=== PATIENT | female | born 1935 | race Caucasian/White ===

== ENCOUNTER 2016-07-12 15:03 | Inpatient (IN) | payer MEDICARE, OTHER ==
[~2016-07-12] VITALS: Ht 154.9 cm; Wt 59.8 kg
[~2016-07-12 15:03] MED LIST: ALBU8HFA IH; AMOX1TAB16 PO; ASPI81 PO; BUDE10.2 IH; CALC1TAB15 PO; CARV12 PO; ESCI10TA PO; FOLI1 PO; FURO40 PO; GUAI600T PO; LEVO50 PO; MULT1CAP32 PO; NYST5L PO; OMEP20 PO; PRED5 PO; SERT25TA PO; SLOWK8 PO; SPIR25 PO; THEO100T25 PO; TIOT185 IH
[2016-07-12 15:30] LABS: BASOPHILS # (AUTO) 0.03 K/uL (0.00-0.20); BASOPHILS % (AUTO) 0.5 % (0.0-2.0); EOSINOPHILS # (AUTO) 0.01 K/uL (0.00-0.70); EOSINOPHILS % (AUTO) 0.19 % (1.0-6.0); HEMATOCRIT 41.1 % (36-46); HEMOGLOBIN 13.3 g/dL (12.0-16.0); LYMPHOCYTES # (AUTO) 0.8 K/uL (1.0-4.8); LYMPHOCYTES % (AUTO) 12.5 % (22.0-44.0); MEAN CORPUSCULAR HEMOGLOBIN 28.5 pg (26.0-34.0); MEAN CORPUSCULAR HGB CONC 32.3 G/dL (31.0-37.0); MEAN CORPUSCULAR VOLUME 88 fL (80-100); MONOCYTES # (AUTO) 0.3 K/uL (0.1-1.0); NEUTROPHILS # (AUTO) 5.4 K/uL (1.8-7.7); NEUTROPHILS % (AUTO) 82.8 % (40.0-70.0); PLATELET COUNT (AUTO) 59 K/uL (150-450); RED BLOOD CELL COUNT(AUTO) 4.67 MIL/uL (4.00-5.20); RED CELL DISTRIBUTION WIDTH 25.4 % (11.5-14.5); WHITE BLOOD COUNT (AUTO) 6.5 K/uL (4.5-11.0)
[2016-07-12 15:35] LABS: ANION GAP 5 mmol/L (8-16); CALCIUM, TOTAL 8.8 mg/dL (8.8-10.5); CARBON DIOXIDE 33 mmol/L (22-29); CHLORIDE 104 mmol/L (98-107); CREATININE 0.98 mg/dL (0.60-1.30); GLOMERULAR FILTR. RATE CALC 54 mL/min (>60); POTASSIUM 4.6 mmol/L (3.5-5.1); SODIUM SERUM 142 mmol/L (136-145); UREA NITROGEN, BLOOD 22 mg/dL (7-18)
[2016-07-12 15:41] LABS: ALANINE AMINOTRANSFERASE 77 U/L (12-78); ALBUMIN 2.8 g/dL (3.4-5.0); ASPARTATE AMINOTRANSFERASE 58 U/L (15-37); BILIRUBIN,TOTAL 2.2 mg/dL (0.1-1.0); CREATINE KINASE, TOTAL 36 U/L (26-192); TOTAL PROTEIN, SERUM 6.5 g/dL (6.4-8.2)
[2016-07-12] MEDS ORDERED: DIGOXIN 250 MCG/ML 2 ML AMP ONE (15:46)
[2016-07-12 15:51] LABS: APPEARANCE,URINE CLOUDY (CLEAR); GLUCOSE, URINE (UA) NEGATIVE (NEGATIVE); KETONES,URINE NEGATIVE (NEGATIVE); LEUKOCYTE ESTERASE ,URINE LARGE (NEGATIVE); OCCULT BLOOD,URINE TRACE (NEGATIVE); PROTEIN,URINE NEGATIVE (NEGATIVE)
[2016-07-12 15:53] LABS: ADD UA MICROSCOPIC YES
[2016-07-12] MEDS ORDERED: DIGOXIN 250 MCG/ML 2 ML AMP IVP ONE (16:00)
[2016-07-12 16:20] LABS: SQUAMOUS EPITHELIAL CELL,UR Moderate /LPF (None Seen)
[2016-07-12 16:21] LABS: RBC,URINE 0-2 /HPF (0-2)
[2016-07-12] MEDS ORDERED: DILTIAZEM HCL 125 MG in DEXTROSE 5%-WATER 100 ML IV STA (16:44)
[2016-07-12] MEDS ORDERED: ASPIRIN 325 MG TABLET PO ONE (16:45)
[2016-07-12 16:49] LABS: INR 1.3 (0.9-1.1); PROTHROMBIN TIME 13.6 SEC (9.4-11.6)
[2016-07-12] MEDS ORDERED: DILTIAZEM HCL 125 MG in DEXTROSE 5%-WATER 100 ML IV SCH (17:34)
[2016-07-12] MEDS ORDERED: ACETAMINOPHEN 325 MG TABLET PO PRN (18:00)
[2016-07-12] MEDS ORDERED: ONDANSETRON HCL 4 MG/2 ML VIAL IVP PRN ×2 (18:00→20:30)
[2016-07-12] MEDS ORDERED: 0.9% SODIUM CHLORIDE 10 ML SYRINGE IVP PRN (18:00)
[2016-07-12 20:25] VITALS: BP 98/48
[2016-07-12] MEDS ORDERED: HYDROCODONE/ACETAMINOPHEN 5-325 MG TABLET PO PRN (20:30)
[2016-07-12] MEDS ORDERED: MAGNESIUM HYDROXIDE SUSPENSION 30 ML UDCUP PO PRN (20:30)
[2016-07-12] MEDS ORDERED: BISACODYL 10 MG RECTAL RECTAL SUPPOSITORY PR PRN (20:30)
[2016-07-12] MEDS ORDERED: ZOLPIDEM TARTRATE 5 MG TABLET PO PRN (20:30)
[2016-07-12] MEDS ORDERED: ALBUTEROL SULFATE 2.5 MG/0.5 ML NEB SOLUTION NEB PRN (20:30)
[2016-07-12] MEDS ORDERED: MORPHINE SULFATE 2 MG/ML SYRINGE IVP PRN (20:30)
[2016-07-12] MEDS ORDERED: IPRATROPIUM BROMIDE 0.5 MG/2.5 ML NEB SOLUTION NEB PRN (20:30)
[2016-07-12] MEDS: BUDESONIDE/FORMOTEROL FUMARATE 160-4.5 MCG/PUFF 6.9 GM INHALER IH SCH (21:52)
[2016-07-12] MEDS: DOCUSATE SODIUM 100 MG CAPSULE PO SCH (21:52)
[2016-07-13] VITALS (7 sets, daily range): BP systolic 97–117; BP diastolic 5–71
[2016-07-13] MEDS: HEPARIN SODIUM,PORCINE 5,000 UNITS/ML VIAL SQ SCH ×2 (00:42→09:20)
[2016-07-13 05:27] LABS: CHOL/HDL RATIO 4.7 (3.9-5.7)
[2016-07-13] MEDS ORDERED: DILTIAZEM HCL 125 MG in DEXTROSE 5%-WATER 100 ML IV PRN (05:38)
[2016-07-13] MEDS: LEVOTHYROXINE SODIUM 50 MCG TABLET PO SCH (06:11)
[2016-07-13] MEDS ORDERED: ASPIRIN 81 MG CHEWABLE TABLET PO SCH (09:00)
[2016-07-13] MEDS: FOLIC ACID 1 MG TABLET PO SCH (09:20)
[2016-07-13] MEDS: SERTRALINE HCL 50 MG TABLET PO SCH (09:21)
[2016-07-13] MEDS: DOCUSATE SODIUM 100 MG CAPSULE PO SCH ×2 (09:21→20:21)
[2016-07-13] MEDS: MULTIVITAMINS, THERAPEUTIC TABLET PO SCH (09:21)
[2016-07-13] MEDS: PANTOPRAZOLE SODIUM 40 MG DR TABLET PO SCH (09:22)
[2016-07-13] MEDS: POTASSIUM CHLORIDE 8 MEQ ER TABLET PO SCH (09:22)
[2016-07-13] MEDS: TIOTROPIUM BROMIDE 18 MCG/INH HANDIHALER [5] IH SCH (09:22)
[2016-07-13] MEDS: CALCIUM OYSTER SHELL 500 MG TABLET PO SCH (09:22)
[2016-07-13] MEDS: BUDESONIDE/FORMOTEROL FUMARATE 160-4.5 MCG/PUFF 6.9 GM INHALER IH SCH ×2 (09:22→20:21)
[2016-07-13] MEDS: SPIRONOLACTONE 25 MG TABLET PO SCH (09:23)
[2016-07-13] MEDS ORDERED: AMIODARONE HCL 150 MG in DEXTROSE 5%-WATER 97 ML IV ONE (13:20)
[2016-07-13] MEDS ORDERED: AMIODARONE HCL 360 MG in DEXTROSE 5%-WATER 242.8 ML IV ONE (13:30)
[2016-07-13] MEDS: ESCITALOPRAM OXALATE 10 MG TABLET PO SCH (13:46)
[2016-07-13] MEDS: APIXABAN 2.5 MG TABLET PO SCH ×2 (15:43→20:22)
[2016-07-13] MEDS ORDERED: AMIODARONE HCL 540 MG in DEXTROSE 5%-WATER 239.2 ML IV ONE (19:30)
[2016-07-13] MEDS: ACETAMINOPHEN 325 MG TABLET PO PRN (20:28)
[2016-07-13] MEDS ORDERED: AMIODARONE HCL 200 MG TABLET PO SCH (21:00)
[2016-07-14 03:24] VITALS: BP 130/77
[2016-07-14] MEDS: LEVOTHYROXINE SODIUM 50 MCG TABLET PO SCH (05:32)
[2016-07-14] MEDS: PANTOPRAZOLE SODIUM 40 MG DR TABLET PO SCH (07:59)
[2016-07-14] MEDS: MULTIVITAMINS, THERAPEUTIC TABLET PO SCH (07:59)
[2016-07-14] MEDS: DOCUSATE SODIUM 100 MG CAPSULE PO SCH ×2 (08:00→20:00)
[2016-07-14] MEDS: FOLIC ACID 1 MG TABLET PO SCH (08:00)
[2016-07-14] MEDS: SPIRONOLACTONE 25 MG TABLET PO SCH (08:00)
[2016-07-14] MEDS: APIXABAN 2.5 MG TABLET PO SCH ×2 (08:00→20:00)
[2016-07-14] MEDS: TIOTROPIUM BROMIDE 18 MCG/INH HANDIHALER [5] IH SCH (08:01)
[2016-07-14] MEDS: BUDESONIDE/FORMOTEROL FUMARATE 160-4.5 MCG/PUFF 6.9 GM INHALER IH SCH ×2 (08:02→20:00)
[2016-07-14] MEDS: SERTRALINE HCL 50 MG TABLET PO SCH (08:02)
[2016-07-14] MEDS: CALCIUM OYSTER SHELL 500 MG TABLET PO SCH (08:02)
[2016-07-14 08:27] VITALS: BP 124/94
[2016-07-14] MEDS: METOPROLOL TARTRATE 25 MG TABLET PO SCH ×2 (09:48→20:00)
[2016-07-14] MEDS: AMIODARONE HCL 200 MG TABLET PO SCH ×3 (09:48→23:38)
[2016-07-14 12:38] VITALS: BP 102/63
[2016-07-14] MEDS: ESCITALOPRAM OXALATE 10 MG TABLET PO SCH (12:52)
[2016-07-14] MEDS ORDERED: AMIODARONE HCL 750 MG in DEXTROSE 5%-WATER 485 ML IV SCH (13:30)
[2016-07-14 16:25] VITALS: BP 132/79
[2016-07-14] MEDS: ACETAMINOPHEN 325 MG TABLET PO PRN (16:28)
[2016-07-14 19:31] VITALS: BP 118/64
[2016-07-14 23:53] VITALS: BP 145/86
[2016-07-15 04:14] VITALS: BP 146/78
[2016-07-15] MEDS: ACETAMINOPHEN 325 MG TABLET PO PRN (04:42)
[2016-07-15] MEDS: LEVOTHYROXINE SODIUM 50 MCG TABLET PO SCH (05:44)
[2016-07-15 06:30] LABS: BASOPHILS % (AUTO) 0.3 % (0.0-2.0); EOSINOPHILS % (AUTO) 1.7 % (1.0-6.0); HEMATOCRIT 40.6 % (36-46); LYMPHOCYTES # (AUTO) 1.2 K/uL (1.0-4.8); MEAN CORPUSCULAR HEMOGLOBIN 28.5 pg (26.0-34.0); MEAN CORPUSCULAR HGB CONC 32.1 G/dL (31.0-37.0); MEAN CORPUSCULAR VOLUME 89 fL (80-100); MONOCYTES # (AUTO) 0.5 K/uL (0.1-1.0); MONOCYTES % (AUTO) 7.1 % (2.0-9.0); NEUTROPHILS # (AUTO) 4.9 K/uL (1.8-7.7); NEUTROPHILS % (AUTO) 72.9 % (40.0-70.0); PLATELET COUNT (AUTO) 74 K/uL (150-450); RED BLOOD CELL COUNT(AUTO) 4.58 MIL/uL (4.00-5.20); RED CELL DISTRIBUTION WIDTH 24.8 % (11.5-14.5); WHITE BLOOD COUNT (AUTO) 6.8 K/uL (4.5-11.0)
[2016-07-15 06:48] LABS: ALANINE AMINOTRANSFERASE 56 U/L (12-78); ALBUMIN 2.4 g/dL (3.4-5.0); ANION GAP 3 mmol/L (8-16); ASPARTATE AMINOTRANSFERASE 52 U/L (15-37); BILIRUBIN,TOTAL 5.4 mg/dL (0.1-1.0); CALCIUM, TOTAL 8.2 mg/dL (8.8-10.5); CARBON DIOXIDE 32 mmol/L (22-29); CHLORIDE 101 mmol/L (98-107); CREATININE 0.62 mg/dL (0.60-1.30); GLOMERULAR FILTR. RATE CALC > 60 mL/min (>60); POTASSIUM 3.9 mmol/L (3.5-5.1); SODIUM SERUM 136 mmol/L (136-145); TOTAL PROTEIN, SERUM 5.7 g/dL (6.4-8.2); UREA NITROGEN, BLOOD 9 mg/dL (7-18)
[2016-07-15 07:33] VITALS: BP 130/58
[2016-07-15] MEDS: AMIODARONE HCL 200 MG TABLET PO SCH ×2 (08:55→16:23)
[2016-07-15] MEDS: SPIRONOLACTONE 25 MG TABLET PO SCH (08:56)
[2016-07-15] MEDS: METOPROLOL TARTRATE 25 MG TABLET PO SCH ×2 (08:56→20:54)
[2016-07-15] MEDS: DOCUSATE SODIUM 100 MG CAPSULE PO SCH ×2 (08:56→20:54)
[2016-07-15] MEDS: MULTIVITAMINS, THERAPEUTIC TABLET PO SCH (08:56)
[2016-07-15] MEDS: PANTOPRAZOLE SODIUM 40 MG DR TABLET PO SCH (08:56)
[2016-07-15] MEDS: FOLIC ACID 1 MG TABLET PO SCH (08:56)
[2016-07-15] MEDS: CALCIUM OYSTER SHELL 500 MG TABLET PO SCH (08:56)
[2016-07-15] MEDS: TIOTROPIUM BROMIDE 18 MCG/INH HANDIHALER [5] IH SCH (08:57)
[2016-07-15] MEDS: APIXABAN 2.5 MG TABLET PO SCH ×2 (08:57→20:54)
[2016-07-15] MEDS: BUDESONIDE/FORMOTEROL FUMARATE 160-4.5 MCG/PUFF 6.9 GM INHALER IH SCH ×2 (08:57→20:54)
[2016-07-15] MEDS: SERTRALINE HCL 50 MG TABLET PO SCH (08:58)
[2016-07-15] MEDS ORDERED: MAGNESIUM SULFATE 3 GM in DEXTROSE 5%-WATER 100 ML IV ONE (10:15)
[2016-07-15] MEDS: ESCITALOPRAM OXALATE 10 MG TABLET PO SCH (11:37)
[2016-07-15 11:58] VITALS: BP 120/65
[2016-07-15 16:15] VITALS: BP 134/73
[2016-07-15 20:02] VITALS: BP 120/77
[2016-07-15 23:20] VITALS: BP 107/81
[2016-07-16] MEDS: AMIODARONE HCL 200 MG TABLET PO SCH ×3 (00:40→16:19)
[2016-07-16 05:05] VITALS: BP 117/69
[2016-07-16] MEDS: LEVOTHYROXINE SODIUM 50 MCG TABLET PO SCH (06:14)
[2016-07-16 07:52] VITALS: BP 131/86
[2016-07-16] MEDS: CALCIUM OYSTER SHELL 500 MG TABLET PO SCH (08:03)
[2016-07-16] MEDS: BUDESONIDE/FORMOTEROL FUMARATE 160-4.5 MCG/PUFF 6.9 GM INHALER IH SCH (08:03)
[2016-07-16] MEDS: FOLIC ACID 1 MG TABLET PO SCH (08:04)
[2016-07-16] MEDS: SPIRONOLACTONE 25 MG TABLET PO SCH (08:04)
[2016-07-16] MEDS: MULTIVITAMINS, THERAPEUTIC TABLET PO SCH (08:04)
[2016-07-16] MEDS: POTASSIUM CHLORIDE 8 MEQ ER TABLET PO SCH (08:04)
[2016-07-16] MEDS: SERTRALINE HCL 50 MG TABLET PO SCH (08:04)
[2016-07-16] MEDS: METOPROLOL TARTRATE 25 MG TABLET PO SCH (08:04)
[2016-07-16] MEDS: DOCUSATE SODIUM 100 MG CAPSULE PO SCH (08:04)
[2016-07-16] MEDS: APIXABAN 2.5 MG TABLET PO SCH (08:04)
[2016-07-16] MEDS: PANTOPRAZOLE SODIUM 40 MG DR TABLET PO SCH (08:05)
[2016-07-16] MEDS ORDERED: MAGNESIUM SULFATE 2 GM in DEXTROSE 5%-WATER 50 ML IV ONE (09:45)
[2016-07-16] MEDS ORDERED: SODIUM CHLORIDE 0.9% 100 ML ONE (11:58)
[2016-07-16 12:02] VITALS: BP 122/74
[2016-07-16] MEDS: ESCITALOPRAM OXALATE 10 MG TABLET PO SCH (12:13)
[2016-07-16] MEDS: ACETAMINOPHEN 325 MG TABLET PO PRN (12:13)
[2016-07-16] MEDS ORDERED: APIX2.5T PO (15:44)
[2016-07-16] MEDS ORDERED: AMIO200T44 PO (15:44)
[2016-07-16 15:46] VITALS: BP 116/72
[2016-07-16] MEDS: TIOTROPIUM BROMIDE 18 MCG/INH HANDIHALER [5] IH SCH (16:19)
[2016-09-13] MEDS ORDERED: CIPR-278 PO (14:35)
[2016-09-13] MEDS ORDERED: FERR-72 PO (14:35)
== END 2016-07-16 17:00 | disposition home or self-care (01) | DRG 309 ==
LOC: EMS 15:05 → 5S 17:10 → ICU 17:10 → 5S 07-13 15:26
PROVIDERS: ADMIT Hospitalist; ATTEND Hospitalist
DX: I48.91 Unspecified atrial fibrillation (principal); I24.8 Other forms of acute ischemic heart disease; E44.1 Mild protein-calorie malnutrition; J44.9 Chronic obstructive pulmonary disease, unspecified; J45.909 Unspecified asthma, uncomplicated; K21.9 Gastro-esophageal reflux disease without esophagitis; E03.9 Hypothyroidism, unspecified; F32.9 Major depressive disorder, single episode, unspecified; I50.9 Heart failure, unspecified; I11.0 Hypertensive heart disease with heart failure; B18.2 Chronic viral hepatitis C; K74.60 Unspecified cirrhosis of liver; E78.5 Hyperlipidemia, unspecified; D69.6 Thrombocytopenia, unspecified; F17.200 Nicotine dependence, unspecified, uncomplicated; Z79.899 Other long term (current) drug therapy; Z79.82 Long term (current) use of aspirin; Z90.49 Acquired absence of other specified parts of digestive tract; Z86.73 Personal history of transient ischemic attack (TIA), and cerebral infarction without residual deficits; Z83.3 Family history of diabetes mellitus; Z82.5 Family history of asthma and other chronic lower respiratory diseases; Z82.49 Family history of ischemic heart disease and other diseases of the circulatory system
CPT/HCPCS: 83735; 87081; 87086; 93005; 93306; 96365; 96366; 96368; 96375; 99291; J0282; J1160; J1644; J3475; J3490; J7050; J7060

== ENCOUNTER 2016-07-17 08:39 | Emergency (ER) | payer MEDICARE, OTHER ==
[~2016-07-17] VITALS: Ht 147.3 cm; Wt 64.5 kg
[~2016-07-17 08:39] MED LIST changes: +AMIO200T44 PO; -AMOX1TAB16 PO; +APIX2.5T PO; -PRED5 PO
[2016-07-17 09:45] LABS: BASOPHILS % (AUTO) 0.4 % (0.0-2.0); EOSINOPHILS % (AUTO) 2.7 % (1.0-6.0); HEMATOCRIT 40.6 % (36-46); HEMOGLOBIN 13.2 g/dL (12.0-16.0); LYMPHOCYTES # (AUTO) 0.7 K/uL (1.0-4.8); LYMPHOCYTES % (AUTO) 20.7 % (22.0-44.0); MEAN CORPUSCULAR HEMOGLOBIN 28.6 pg (26.0-34.0); MEAN CORPUSCULAR HGB CONC 32.6 G/dL (31.0-37.0); MEAN CORPUSCULAR VOLUME 88 fL (80-100); MONOCYTES # (AUTO) 0.3 K/uL (0.1-1.0); MONOCYTES % (AUTO) 8.9 % (2.0-9.0); NEUTROPHILS # (AUTO) 2.1 K/uL (1.8-7.7); NEUTROPHILS % (AUTO) 67.3 % (40.0-70.0); PLATELET COUNT (AUTO) 77 K/uL (150-450); RED BLOOD CELL COUNT(AUTO) 4.62 MIL/uL (4.00-5.20); RED CELL DISTRIBUTION WIDTH 25.8 % (11.5-14.5); WHITE BLOOD COUNT (AUTO) 3.2 K/uL (4.5-11.0)
[2016-07-17 09:57] LABS: INR 1.3 (0.9-1.1); PROTHROMBIN TIME 13.8 SEC (9.4-11.6)
[2016-07-17 09:58] LABS: ANION GAP 3 mmol/L (8-16); CALCIUM, TOTAL 7.6 mg/dL (8.8-10.5); CARBON DIOXIDE 31 mmol/L (22-29); CHLORIDE 102 mmol/L (98-107); CREATININE 0.83 mg/dL (0.60-1.30); GLOMERULAR FILTR. RATE CALC > 60 mL/min (>60); POTASSIUM 4.7 mmol/L (3.5-5.1); SODIUM SERUM 136 mmol/L (136-145); UREA NITROGEN, BLOOD 10 mg/dL (7-18)
[2016-07-17 10:02] LABS: RBC MORPHOLOGY COMMENT ABNORMAL RBC MORPH
[2016-07-17 10:05] LABS: ALANINE AMINOTRANSFERASE 51 U/L (12-78); ALBUMIN 2.3 g/dL (3.4-5.0); ASPARTATE AMINOTRANSFERASE 73 U/L (15-37); B-TYPE NATRIURETIC PEPTIDE 676 pg/mL (0-100); BILIRUBIN,TOTAL 5.7 mg/dL (0.1-1.0); CREATINE KINASE, TOTAL 36 U/L (26-192); TOTAL PROTEIN, SERUM 5.5 g/dL (6.4-8.2)
[2016-07-17] MEDS ORDERED: FAMOTIDINE 40 MG in SODIUM CHLORIDE 0.9% 100 ML IV ONE (13:30)
[2016-07-17 14:28] VITALS: BP 110/66
[2016-09-13] MEDS ORDERED: CIPR-278 PO (14:35)
[2016-09-13] MEDS ORDERED: FERR-72 PO (14:35)
== END 2016-07-17 14:40 | disposition home or self-care (01) ==
LOC: EMS 08:43
DX: K21.9 Gastro-esophageal reflux disease without esophagitis (principal); I95.9 Hypotension, unspecified; I11.0 Hypertensive heart disease with heart failure; I50.9 Heart failure, unspecified; J45.909 Unspecified asthma, uncomplicated; J44.9 Chronic obstructive pulmonary disease, unspecified
CPT/HCPCS: 71010; 80053; 82550; 83880; 84484; 85025; 85610; 85730; 93005; 96365; 99285; J3490; J7050

== ENCOUNTER 2016-08-14 05:37 | Inpatient (IN) | payer MEDICARE, OTHER ==
[~2016-08-14] VITALS: Ht 149.9 cm; Wt 55.8 kg
[2016-08-14] MEDS ORDERED: ALBUTEROL SULFATE 5 MG/ML 20 ML NEB SOLN [BULK] NEB ONE (06:00)
[2016-08-14] MEDS ORDERED: IPRATROPIUM BROMIDE 0.5 MG/2.5 ML NEB SOLUTION NEB ONE ×2 (06:00→13:15)
[2016-08-14] MEDS ORDERED: SODIUM CHLORIDE 0.9% 250 ML IV ONE (06:15)
[2016-08-14 06:44] LABS: ANION GAP 7 mmol/L (8-16); CALCIUM, TOTAL 8.4 mg/dL (8.8-10.5); CARBON DIOXIDE 32 mmol/L (22-29); CHLORIDE 105 mmol/L (98-107); CREATININE 0.84 mg/dL (0.60-1.30); GLOMERULAR FILTR. RATE CALC > 60 mL/min (>60); POTASSIUM 4.1 mmol/L (3.5-5.1); SODIUM SERUM 144 mmol/L (136-145); UREA NITROGEN, BLOOD 10 mg/dL (7-18)
[2016-08-14 06:45] LABS: INR 1.2 (0.9-1.1); PROTHROMBIN TIME 12.8 SEC (9.4-11.6)
[2016-08-14 06:47] LABS: ORIG DRAW (USER) PTCARESTAF
[2016-08-14 06:50] LABS: ALANINE AMINOTRANSFERASE 29 U/L (12-78); ALBUMIN 2.5 g/dL (3.4-5.0); ASPARTATE AMINOTRANSFERASE 65 U/L (15-37); BILIRUBIN,TOTAL 1.4 mg/dL (0.1-1.0); CREATINE KINASE, TOTAL 51 U/L (26-192); TOTAL PROTEIN, SERUM 6.5 g/dL (6.4-8.2)
[2016-08-14 07:04] LABS: B-TYPE NATRIURETIC PEPTIDE 300 pg/mL (0-100)
[2016-08-14 07:17] LABS: BASOPHILS % (AUTO) 0.3 % (0.0-2.0); EOSINOPHILS % (AUTO) 1.2 % (1.0-6.0); HEMOGLOBIN 11.1 g/dL (12.0-16.0); LYMPHOCYTES # (AUTO) 1.3 K/uL (1.0-4.8); LYMPHOCYTES % (AUTO) 44.8 % (22.0-44.0); MEAN CORPUSCULAR HEMOGLOBIN 30.1 pg (26.0-34.0); MEAN CORPUSCULAR HGB CONC 32.7 G/dL (31.0-37.0); MEAN CORPUSCULAR VOLUME 92 fL (80-100); MONOCYTES # (AUTO) 0.3 K/uL (0.1-1.0); MONOCYTES % (AUTO) 11.8 % (2.0-9.0); NEUTROPHILS # (AUTO) 1.2 K/uL (1.8-7.7); NEUTROPHILS % (AUTO) 41.9 % (40.0-70.0); RED BLOOD CELL COUNT(AUTO) 3.69 MIL/uL (4.00-5.20); WHITE BLOOD COUNT (AUTO) 2.9 K/uL (4.5-11.0)
[2016-08-14 07:19] LABS: PLATELET COUNT (AUTO) 57 K/uL (150-450)
[2016-08-14] MEDS ORDERED: MethylPREDNISolone SOD SUCC 125 MG/2 ML VIAL IVP ONE (07:45)
[2016-08-14] MEDS ORDERED: AZITHROMYCIN 500 MG/NS 250 ML IV ONE (07:45)
[2016-08-14] MEDS ORDERED: CefTRIAXone 1 GM/DEXTROSE 50 ML IV ONE (07:45)
[2016-08-14 10:56] LABS: RBC MORPHOLOGY COMMENT ABNORMAL RBC MORPH
[2016-08-14] MEDS ORDERED: ALBUTEROL SULFATE 2.5 MG/0.5 ML NEB SOLUTION NEB ONE (13:15)
[2016-08-14] MEDS ORDERED: 0.9% SODIUM CHLORIDE 5 ML NEB SOLUTION NEB ONE (13:20)
[2016-08-14 15:55] VITALS: BP 98/57
[2016-08-14 22:19] VITALS: BP 146/83
[2016-08-14] MEDS ORDERED: IPRATROPIUM BROMIDE 0.5 MG/2.5 ML NEB SOLUTION NEB PRN (22:45)
[2016-08-14] MEDS ORDERED: ALBUTEROL SULFATE 2.5 MG/0.5 ML NEB SOLUTION NEB PRN (22:45)
[2016-08-14] MEDS ORDERED: ONDANSETRON HCL 4 MG/2 ML VIAL IVP PRN (22:45)
[2016-08-14] MEDS ORDERED: BISACODYL 10 MG RECTAL RECTAL SUPPOSITORY PR PRN (22:45)
[2016-08-14] MEDS ORDERED: HYDROCODONE/ACETAMINOPHEN 5-325 MG TABLET PO PRN (22:45)
[2016-08-14] MEDS ORDERED: MAGNESIUM HYDROXIDE SUSPENSION 30 ML UDCUP PO PRN (22:45)
[2016-08-14] MEDS ORDERED: ZOLPIDEM TARTRATE 5 MG TABLET PO PRN (22:45)
[2016-08-14] MEDS ORDERED: MORPHINE SULFATE 2 MG/ML SYRINGE IVP PRN (23:00)
[2016-08-14] MEDS: ALBUTEROL SULFATE 2.5 MG/0.5 ML NEB SOLUTION NEB SCH (23:00)
[2016-08-14] MEDS: IPRATROPIUM BROMIDE 0.5 MG/2.5 ML NEB SOLUTION NEB SCH (23:00)
[2016-08-14] MEDS: MethylPREDNISolone SOD SUCC 125 MG/2 ML VIAL IVP SCH (23:43)
[2016-08-14] MEDS: HEPARIN SODIUM,PORCINE 5,000 UNITS/ML VIAL SQ SCH (23:43)
[2016-08-15] VITALS (8 sets, daily range): BP systolic 100–142; BP diastolic 42–76
[2016-08-15] MEDS: MethylPREDNISolone SOD SUCC 125 MG/2 ML VIAL IVP SCH ×4 (05:36→23:58)
[2016-08-15] MEDS: LEVOTHYROXINE SODIUM 50 MCG TABLET PO SCH (05:36)
[2016-08-15] MEDS: ALBUTEROL SULFATE 2.5 MG/0.5 ML NEB SOLUTION NEB SCH ×5 (07:44→22:55)
[2016-08-15] MEDS: IPRATROPIUM BROMIDE 0.5 MG/2.5 ML NEB SOLUTION NEB SCH ×5 (07:44→22:55)
[2016-08-15] MEDS ORDERED: PANTOPRAZOLE SODIUM 40 MG/VIAL IVP SCH (09:00)
[2016-08-15] MEDS: TIOTROPIUM BROMIDE 18 MCG/INH HANDIHALER [5] IH SCH (10:23)
[2016-08-15] MEDS: BUDESONIDE/FORMOTEROL FUMARATE 160-4.5 MCG/PUFF 6.9 GM INHALER IH SCH ×2 (10:23→20:18)
[2016-08-15] MEDS: HEPARIN SODIUM,PORCINE 5,000 UNITS/ML VIAL SQ SCH ×3 (10:24→23:53)
[2016-08-15] MEDS: SERTRALINE HCL 50 MG TABLET PO SCH (10:24)
[2016-08-15] MEDS: SPIRONOLACTONE 25 MG TABLET PO SCH (10:24)
[2016-08-15] MEDS: OMEPRAZOLE 20 MG CAPSULE PO SCH (10:24)
[2016-08-15] MEDS: POTASSIUM CHLORIDE 8 MEQ ER TABLET PO SCH (10:24)
[2016-08-15] MEDS: FOLIC ACID 1 MG TABLET PO SCH (10:25)
[2016-08-15] MEDS: CALCIUM OYSTER SHELL 500 MG TABLET PO SCH (10:25)
[2016-08-15] MEDS: AMIODARONE HCL 200 MG TABLET PO SCH ×2 (10:25→20:20)
[2016-08-15] MEDS: ASPIRIN 81 MG CHEWABLE TABLET PO SCH (10:25)
[2016-08-15] MEDS: APIXABAN 2.5 MG TABLET PO SCH ×2 (10:26→20:19)
[2016-08-15] MEDS: DOCUSATE SODIUM 100 MG CAPSULE PO SCH ×2 (10:26→20:19)
[2016-08-15] MEDS: MULTIVITAMINS, THERAPEUTIC TABLET PO SCH (10:26)
[2016-08-15] MEDS: ACETAMINOPHEN 325 MG TABLET PO PRN (10:33)
[2016-08-15] MEDS: ESCITALOPRAM OXALATE 10 MG TABLET PO SCH (12:42)
[2016-08-15] MEDS: FUROSEMIDE 40 MG TABLET PO SCH ×2 (12:42→20:19)
[2016-08-15] MEDS: CARVEDILOL 12.5 MG TABLET PO SCH ×2 (14:16→20:20)
[2016-08-16 04:51] VITALS: BP 131/56
[2016-08-16] MEDS: MethylPREDNISolone SOD SUCC 125 MG/2 ML VIAL IVP SCH ×4 (05:19→23:27)
[2016-08-16] MEDS: LEVOTHYROXINE SODIUM 50 MCG TABLET PO SCH (05:20)
[2016-08-16] MEDS: IPRATROPIUM BROMIDE 0.5 MG/2.5 ML NEB SOLUTION NEB SCH ×5 (07:18→23:00)
[2016-08-16] MEDS: ALBUTEROL SULFATE 2.5 MG/0.5 ML NEB SOLUTION NEB SCH ×5 (07:18→23:00)
[2016-08-16 07:31] VITALS: BP 139/61
[2016-08-16] MEDS: HEPARIN SODIUM,PORCINE 5,000 UNITS/ML VIAL SQ SCH ×3 (09:46→23:27)
[2016-08-16] MEDS: BUDESONIDE/FORMOTEROL FUMARATE 160-4.5 MCG/PUFF 6.9 GM INHALER IH SCH ×2 (09:46→20:13)
[2016-08-16] MEDS: SPIRONOLACTONE 25 MG TABLET PO SCH (09:46)
[2016-08-16] MEDS: TIOTROPIUM BROMIDE 18 MCG/INH HANDIHALER [5] IH SCH (09:46)
[2016-08-16] MEDS: CALCIUM OYSTER SHELL 500 MG TABLET PO SCH (09:47)
[2016-08-16] MEDS: DOCUSATE SODIUM 100 MG CAPSULE PO SCH ×2 (09:47→20:04)
[2016-08-16] MEDS: FOLIC ACID 1 MG TABLET PO SCH (09:47)
[2016-08-16] MEDS: FUROSEMIDE 40 MG TABLET PO SCH ×2 (09:47→20:04)
[2016-08-16] MEDS: CARVEDILOL 12.5 MG TABLET PO SCH ×2 (09:47→20:04)
[2016-08-16] MEDS: ASPIRIN 81 MG CHEWABLE TABLET PO SCH (09:47)
[2016-08-16] MEDS: APIXABAN 2.5 MG TABLET PO SCH ×2 (09:47→20:04)
[2016-08-16] MEDS: MULTIVITAMINS, THERAPEUTIC TABLET PO SCH (09:48)
[2016-08-16] MEDS: SERTRALINE HCL 50 MG TABLET PO SCH (09:48)
[2016-08-16] MEDS: OMEPRAZOLE 20 MG CAPSULE PO SCH (09:48)
[2016-08-16] MEDS: AMIODARONE HCL 200 MG TABLET PO SCH ×2 (09:48→20:04)
[2016-08-16 11:40] VITALS: BP 124/53
[2016-08-16] MEDS: ESCITALOPRAM OXALATE 10 MG TABLET PO SCH (12:51)
[2016-08-16 15:11] LABS: BASOPHILS % (AUTO) 0.1 % (0.0-2.0); EOSINOPHILS % (AUTO) 0 % (1.0-6.0); HEMATOCRIT 36.2 % (36-46); HEMOGLOBIN 11.8 g/dL (12.0-16.0); LYMPHOCYTES # (AUTO) 0.5 K/uL (1.0-4.8); LYMPHOCYTES % (AUTO) 9.4 % (22.0-44.0); MEAN CORPUSCULAR HEMOGLOBIN 30.1 pg (26.0-34.0); MEAN CORPUSCULAR HGB CONC 32.4 G/dL (31.0-37.0); MEAN CORPUSCULAR VOLUME 93 fL (80-100); MONOCYTES # (AUTO) 0.2 K/uL (0.1-1.0); NEUTROPHILS # (AUTO) 4.4 K/uL (1.8-7.7); RED CELL DISTRIBUTION WIDTH 21.1 % (11.5-14.5)
[2016-08-16 15:14] LABS: NEUTROPHILS % (AUTO) 86.5 % (40.0-70.0)
[2016-08-16 15:27] LABS: POTASSIUM 4.7 mmol/L (3.5-5.1)
[2016-08-16 15:32] LABS: ALBUMIN 2.5 g/dL (3.4-5.0)
[2016-08-16 15:58] LABS: CALCIUM, TOTAL 8.5 mg/dL (8.8-10.5); CREATININE 1.23 mg/dL (0.60-1.30)
[2016-08-16 16:01] VITALS: BP 103/46
[2016-08-16 16:04] LABS: BILIRUBIN,TOTAL 1.3 mg/dL (0.1-1.0); TOTAL PROTEIN, SERUM 6.4 g/dL (6.4-8.2)
[2016-08-16 16:32] LABS: PLATELET COUNT (AUTO) 61 K/uL (150-450)
[2016-08-16 19:40] VITALS: BP 137/69
[2016-08-16 23:57] VITALS: BP 116/50
[2016-08-17 05:00] VITALS: BP 116/61
[2016-08-17] MEDS: MethylPREDNISolone SOD SUCC 125 MG/2 ML VIAL IVP SCH ×2 (05:52→12:28)
[2016-08-17] MEDS: LEVOTHYROXINE SODIUM 50 MCG TABLET PO SCH (05:52)
[2016-08-17 06:44] LABS: BASOPHILS # (AUTO) 0.01 K/uL (0.00-0.20); BASOPHILS % (AUTO) 0.3 % (0.0-2.0); EOSINOPHILS % (AUTO) 0.02 % (1.0-6.0); HEMATOCRIT 33.1 % (36-46); HEMOGLOBIN 11.2 g/dL (12.0-16.0); LYMPHOCYTES # (AUTO) 0.4 K/uL (1.0-4.8); LYMPHOCYTES % (AUTO) 11.1 % (22.0-44.0); MEAN CORPUSCULAR HEMOGLOBIN 31.1 pg (26.0-34.0); MEAN CORPUSCULAR HGB CONC 33.9 G/dL (31.0-37.0); MEAN CORPUSCULAR VOLUME 92 fL (80-100); MONOCYTES # (AUTO) 0.1 K/uL (0.1-1.0); MONOCYTES % (AUTO) 1.9 % (2.0-9.0); NEUTROPHILS # (AUTO) 2.7 K/uL (1.8-7.7); PLATELET COUNT (AUTO) 54 K/uL (150-450); RED BLOOD CELL COUNT(AUTO) 3.61 MIL/uL (4.00-5.20); RED CELL DISTRIBUTION WIDTH 21.5 % (11.5-14.5); WHITE BLOOD COUNT (AUTO) 3.2 K/uL (4.5-11.0)
[2016-08-17 07:02] LABS: NEUTROPHILS % (AUTO) 86.7 % (40.0-70.0); RBC MORPHOLOGY COMMENT ABNORMAL RBC MORPH
[2016-08-17 07:03] LABS: ALBUMIN 2.5 g/dL (3.4-5.0); BILIRUBIN,TOTAL 1.3 mg/dL (0.1-1.0); CALCIUM, TOTAL 8.2 mg/dL (8.8-10.5); CREATININE 1.13 mg/dL (0.60-1.30); POTASSIUM 3.9 mmol/L (3.5-5.1); TOTAL PROTEIN, SERUM 6.2 g/dL (6.4-8.2)
[2016-08-17 07:41] VITALS: BP 143/64
[2016-08-17] MEDS: HEPARIN SODIUM,PORCINE 5,000 UNITS/ML VIAL SQ SCH ×2 (08:44→15:15)
[2016-08-17] MEDS: TIOTROPIUM BROMIDE 18 MCG/INH HANDIHALER [5] IH SCH (08:45)
[2016-08-17] MEDS: OMEPRAZOLE 20 MG CAPSULE PO SCH (08:45)
[2016-08-17] MEDS: POTASSIUM CHLORIDE 8 MEQ ER TABLET PO SCH (08:45)
[2016-08-17] MEDS: DOCUSATE SODIUM 100 MG CAPSULE PO SCH (08:45)
[2016-08-17] MEDS: BUDESONIDE/FORMOTEROL FUMARATE 160-4.5 MCG/PUFF 6.9 GM INHALER IH SCH (08:45)
[2016-08-17] MEDS: APIXABAN 2.5 MG TABLET PO SCH (08:46)
[2016-08-17] MEDS: ASPIRIN 81 MG CHEWABLE TABLET PO SCH (08:46)
[2016-08-17] MEDS: CALCIUM OYSTER SHELL 500 MG TABLET PO SCH (08:46)
[2016-08-17] MEDS: MULTIVITAMINS, THERAPEUTIC TABLET PO SCH (08:46)
[2016-08-17] MEDS: FOLIC ACID 1 MG TABLET PO SCH (08:46)
[2016-08-17] MEDS: CARVEDILOL 12.5 MG TABLET PO SCH (08:46)
[2016-08-17] MEDS: AMIODARONE HCL 200 MG TABLET PO SCH (08:46)
[2016-08-17] MEDS: SPIRONOLACTONE 25 MG TABLET PO SCH (08:46)
[2016-08-17] MEDS: FUROSEMIDE 40 MG TABLET PO SCH (08:46)
[2016-08-17] MEDS: SERTRALINE HCL 50 MG TABLET PO SCH (08:46)
[2016-08-17] MEDS: ACETAMINOPHEN 325 MG TABLET PO PRN (08:53)
[2016-08-17] MEDS: IPRATROPIUM BROMIDE 0.5 MG/2.5 ML NEB SOLUTION NEB SCH ×3 (09:16→15:41)
[2016-08-17] MEDS: ALBUTEROL SULFATE 2.5 MG/0.5 ML NEB SOLUTION NEB SCH ×3 (09:16→15:41)
[2016-08-17 11:27] VITALS: BP 110/51
[2016-08-17] MEDS: ESCITALOPRAM OXALATE 10 MG TABLET PO SCH (12:28)
[2016-08-17 16:11] VITALS: BP 129/68
[2016-08-17] MEDS ORDERED: DSS100 PO (16:16)
[2016-08-17] MEDS ORDERED: IPRNEB IH (16:18)
[2016-08-17] MEDS ORDERED: AUD NEB (16:19)
[2016-09-13] MEDS ORDERED: CIPR-278 PO (14:35)
[2016-09-13] MEDS ORDERED: FERR-72 PO (14:35)
== END 2016-08-17 17:00 | disposition home or self-care (01) | DRG 291 ==
LOC: EMS 05:40 → AHU 15:10 → 5S 22:02
PROVIDERS: ADMIT Hospitalist; ATTEND Hospitalist
DX: I11.0 Hypertensive heart disease with heart failure (principal); J96.20 Acute and chronic respiratory failure, unspecified whether with hypoxia or hypercapnia; J45.901 Unspecified asthma with (acute) exacerbation; E44.0 Moderate protein-calorie malnutrition; I50.33 Acute on chronic diastolic (congestive) heart failure; I48.91 Unspecified atrial fibrillation; J44.9 Chronic obstructive pulmonary disease, unspecified; D64.9 Anemia, unspecified; F32.9 Major depressive disorder, single episode, unspecified; E03.9 Hypothyroidism, unspecified; Z68.24 Body mass index [BMI] 24.0-24.9, adult; F17.210 Nicotine dependence, cigarettes, uncomplicated; K21.9 Gastro-esophageal reflux disease without esophagitis; K74.60 Unspecified cirrhosis of liver; Z90.49 Acquired absence of other specified parts of digestive tract; Z79.01 Long term (current) use of anticoagulants; Z79.82 Long term (current) use of aspirin; Z79.51 Long term (current) use of inhaled steroids; Z79.899 Other long term (current) drug therapy
CPT/HCPCS: 87081; 93005; 94060; 94640; 94644; 96361; 96365; 96366; 96368; 96375; 97163; 97166; 97530; 99285; J0456; J0696; J1644; J2930; J7050

== ENCOUNTER 2016-08-24 11:35 | Emergency (ER) | payer MEDICARE, OTHER ==
[~2016-08-24] VITALS: Ht 144.8 cm; Wt 66.0 kg
[~2016-08-24 11:35] MED LIST changes: +AUD NEB; +DSS100 PO; +IPRNEB IH
[2016-08-24 15:09] LABS: BASOPHILS % (AUTO) 0.1 % (0.0-2.0); EOSINOPHILS % (AUTO) 0.1 % (1.0-6.0); HEMATOCRIT 40.6 % (36-46); HEMOGLOBIN 13.1 g/dL (12.0-16.0); LYMPHOCYTES # (AUTO) 0.6 K/uL (1.0-4.8); LYMPHOCYTES % (AUTO) 7.8 % (22.0-44.0); MEAN CORPUSCULAR HEMOGLOBIN 30.1 pg (26.0-34.0); MEAN CORPUSCULAR HGB CONC 32.1 G/dL (31.0-37.0); MEAN CORPUSCULAR VOLUME 94 fL (80-100); MONOCYTES # (AUTO) 0.5 K/uL (0.1-1.0); MONOCYTES % (AUTO) 6.5 % (2.0-9.0); NEUTROPHILS # (AUTO) 6.4 K/uL (1.8-7.7); PLATELET COUNT (AUTO) 125 K/uL (150-450); RED BLOOD CELL COUNT(AUTO) 4.33 MIL/uL (4.00-5.20); RED CELL DISTRIBUTION WIDTH 19.9 % (11.5-14.5); WHITE BLOOD COUNT (AUTO) 7.5 K/uL (4.5-11.0)
[2016-08-24 15:12] LABS: NEUTROPHILS % (AUTO) 85.5 % (40.0-70.0)
[2016-08-24 15:27] LABS: CALCIUM, TOTAL 8.4 mg/dL (8.8-10.5); CREATININE 1.03 mg/dL (0.60-1.30); POTASSIUM 4.2 mmol/L (3.5-5.1)
[2016-08-24 15:32] LABS: ALBUMIN 2.9 g/dL (3.4-5.0); BILIRUBIN,TOTAL 1.6 mg/dL (0.1-1.0); TOTAL PROTEIN, SERUM 6.9 g/dL (6.4-8.2)
[2016-08-24 15:37] LABS: RBC MORPHOLOGY COMMENT ABNORMAL RBC MORPH
[2016-08-24] MEDS ORDERED: ACETAMINOPHEN 500 MG TABLET PO ONE (17:00)
[2016-08-24 17:20] VITALS: BP 139/53
[2016-09-13] MEDS ORDERED: CIPR-278 PO (14:35)
[2016-09-13] MEDS ORDERED: FERR-72 PO (14:35)
== END 2016-08-24 18:03 | disposition home or self-care (01) ==
LOC: EMS 11:37
DX: S52.502A Unspecified fracture of the lower end of left radius, initial encounter for closed fracture (principal); S80.02XA Contusion of left knee, initial encounter; I11.0 Hypertensive heart disease with heart failure; I50.9 Heart failure, unspecified; J44.9 Chronic obstructive pulmonary disease, unspecified; J45.909 Unspecified asthma, uncomplicated; K21.9 Gastro-esophageal reflux disease without esophagitis; Z79.82 Long term (current) use of aspirin; W19.XXXA Unspecified fall, initial encounter; Y93.89 Activity, other specified; Y92.89 Other specified places as the place of occurrence of the external cause; Y99.8 Other external cause status
CPT/HCPCS: 70450; 71020; 73521; 73552; 99285

== ENCOUNTER 2016-09-01 18:45 | Emergency (ER) | payer MEDICARE, OTHER ==
[~2016-09-01] VITALS: Ht 142.2 cm; Wt 65.9 kg
[2016-09-01] MEDS ORDERED: HYDROCODONE/ACETAMINOPHEN 5-325 MG TABLET PO ONE (20:00)
[2016-09-01 22:18] VITALS: BP 118/79
== END 2016-09-01 22:36 | disposition home or self-care (01) ==
LOC: EMS 18:50
DX: S80.02XA Contusion of left knee, initial encounter (principal); I11.0 Hypertensive heart disease with heart failure; I50.9 Heart failure, unspecified; J45.909 Unspecified asthma, uncomplicated; K21.9 Gastro-esophageal reflux disease without esophagitis; J44.9 Chronic obstructive pulmonary disease, unspecified; Z79.82 Long term (current) use of aspirin; W01.0XXA Fall on same level from slipping, tripping and stumbling without subsequent striking against object, initial encounter; Y93.89 Activity, other specified; Y92.89 Other specified places as the place of occurrence of the external cause; Y99.8 Other external cause status
CPT/HCPCS: 29530; 29540; 93971; 99284

== ENCOUNTER 2016-09-11 16:41 | Emergency (ER) | payer MEDICARE, OTHER ==
[~2016-09-11] VITALS: Ht 152.4 cm; Wt 65.0 kg
[2016-09-11 17:27] LABS: BASOPHILS # (AUTO) 0.01 K/uL (0.00-0.20); BASOPHILS % (AUTO) 0.4 % (0.0-2.0); EOSINOPHILS # (AUTO) 0.03 K/uL (0.00-0.70); EOSINOPHILS % (AUTO) 1.11 % (1.0-6.0); HEMATOCRIT 37.6 % (36-46); HEMOGLOBIN 12.4 g/dL (12.0-16.0); LYMPHOCYTES # (AUTO) 0.6 K/uL (1.0-4.8); MEAN CORPUSCULAR HEMOGLOBIN 32.4 pg (26.0-34.0); MEAN CORPUSCULAR HGB CONC 32.9 G/dL (31.0-37.0); MEAN CORPUSCULAR VOLUME 99 fL (80-100); MONOCYTES # (AUTO) 0.2 K/uL (0.1-1.0); MONOCYTES % (AUTO) 7.5 % (2.0-9.0); NEUTROPHILS # (AUTO) 1.6 K/uL (1.8-7.7); PLATELET COUNT (AUTO) 72 K/uL (150-450); RED BLOOD CELL COUNT(AUTO) 3.81 MIL/uL (4.00-5.20); RED CELL DISTRIBUTION WIDTH 19.3 % (11.5-14.5); WHITE BLOOD COUNT (AUTO) 2.5 K/uL (4.5-11.0)
[2016-09-11 17:29] LABS: ANION GAP 6 mmol/L (8-16); CALCIUM, TOTAL 7.9 mg/dL (8.8-10.5); CARBON DIOXIDE 32 mmol/L (22-29); CHLORIDE 108 mmol/L (98-107); GLOMERULAR FILTR. RATE CALC 31 mL/min (>60); POTASSIUM 3.8 mmol/L (3.5-5.1); SODIUM SERUM 146 mmol/L (136-145); UREA NITROGEN, BLOOD 24 mg/dL (7-18)
[2016-09-11 17:32] LABS: INR 1.5 (0.9-1.1); PROTHROMBIN TIME 15.9 SEC (9.4-11.6)
[2016-09-11 17:35] LABS: ALANINE AMINOTRANSFERASE 48 U/L (12-78); ALBUMIN 2.2 g/dL (3.4-5.0); ASPARTATE AMINOTRANSFERASE 81 U/L (15-37); BILIRUBIN,TOTAL 11.1 mg/dL (0.1-1.0); CREATINE KINASE, TOTAL 50 U/L (26-192); TOTAL PROTEIN, SERUM 5.8 g/dL (6.4-8.2)
[2016-09-11 17:47] LABS: B-TYPE NATRIURETIC PEPTIDE 340 pg/mL (0-100)
[2016-09-11 17:53] LABS: APPEARANCE,URINE CLOUDY (CLEAR); GLUCOSE, URINE (UA) NEGATIVE (NEGATIVE); KETONES,URINE NEGATIVE (NEGATIVE); LEUKOCYTE ESTERASE ,URINE TRACE (NEGATIVE); OCCULT BLOOD,URINE NEGATIVE (NEGATIVE); PROTEIN,URINE NEGATIVE (NEGATIVE)
[2016-09-11 17:54] LABS: RBC MORPHOLOGY COMMENT ABNORMAL RBC MORPH
[2016-09-11 18:00] LABS: ADD UA MICROSCOPIC YES
[2016-09-11 18:16] LABS: RBC,URINE 0-2 /HPF (0-2); SQUAMOUS EPITHELIAL CELL,UR Few /LPF (None Seen)
[2016-09-11 20:23] VITALS: BP 124/71
[2016-09-11] MEDS ORDERED: CIPROFLOXACIN HCL 250 MG TABLET PO ONE (22:00)
[2016-09-13] MEDS ORDERED: CIPR-278 PO (14:35)
[2016-09-13] MEDS ORDERED: FERR-72 PO (14:35)
== END 2016-09-11 22:17 | disposition home or self-care (01) ==
LOC: EMS 16:43
DX: R00.1 Bradycardia, unspecified (principal); N39.0 Urinary tract infection, site not specified; E80.6 Other disorders of bilirubin metabolism; R63.0 Anorexia; I11.0 Hypertensive heart disease with heart failure; I50.9 Heart failure, unspecified; J44.9 Chronic obstructive pulmonary disease, unspecified; K21.9 Gastro-esophageal reflux disease without esophagitis; J45.909 Unspecified asthma, uncomplicated; Z68.28 Body mass index [BMI] 28.0-28.9, adult; Z79.82 Long term (current) use of aspirin
CPT/HCPCS: 74176; 87086; 93005; 99285; 99406

== ENCOUNTER 2016-09-13 15:31 | Inpatient (IN) | payer MEDICARE, OTHER ==
[~2016-09-13] VITALS: Ht 175.3 cm; Wt 60.7 kg
[2016-09-13 17:21] LABS: BASOPHILS % (AUTO) 0.4 % (0.0-2.0); EOSINOPHILS % (AUTO) 1.1 % (1.0-6.0); HEMATOCRIT 38.6 % (36-46); HEMOGLOBIN 12.2 g/dL (12.0-16.0); LYMPHOCYTES # (AUTO) 0.8 K/uL (1.0-4.8); LYMPHOCYTES % (AUTO) 24.9 % (22.0-44.0); MEAN CORPUSCULAR HEMOGLOBIN 31.3 pg (26.0-34.0); MEAN CORPUSCULAR HGB CONC 31.7 G/dL (31.0-37.0); MEAN CORPUSCULAR VOLUME 99 fL (80-100); MONOCYTES # (AUTO) 0.3 K/uL (0.1-1.0); MONOCYTES % (AUTO) 9.4 % (2.0-9.0); NEUTROPHILS # (AUTO) 2.2 K/uL (1.8-7.7); NEUTROPHILS % (AUTO) 64.2 % (40.0-70.0); PLATELET COUNT (AUTO) 83 K/uL (150-450); WHITE BLOOD COUNT (AUTO) 3.4 K/uL (4.5-11.0)
[2016-09-13 17:31] LABS: CALCIUM, TOTAL 8.3 mg/dL (8.8-10.5); CREATININE 1.53 mg/dL (0.60-1.30); POTASSIUM 4.4 mmol/L (3.5-5.1)
[2016-09-13 17:39] LABS: ALBUMIN 2.3 g/dL (3.4-5.0); BILIRUBIN,TOTAL 11.2 mg/dL (0.1-1.0); TOTAL PROTEIN, SERUM 5.9 g/dL (6.4-8.2)
[2016-09-13 17:41] LABS: RBC MORPHOLOGY COMMENT ABNORMAL RBC MORPH
[2016-09-13] MEDS ORDERED: ACETAMINOPHEN 325 MG TABLET PO PRN (21:30)
[2016-09-13] MEDS ORDERED: ZOLPIDEM TARTRATE 5 MG TABLET PO PRN (21:30)
[2016-09-13] MEDS ORDERED: OxyCODONE HCL/ACETAMINOPHEN 5-325 MG TABLET PO PRN (21:30)
[2016-09-14] VITALS (8 sets, daily range): BP systolic 98–158; BP diastolic 42–63
[2016-09-14] MEDS ORDERED: 0.9% SODIUM CHLORIDE 10 ML SYRINGE IVP PRN (01:30)
[2016-09-14] MEDS: HEPARIN SODIUM,PORCINE 5,000 UNITS/ML VIAL SQ SCH ×2 (01:34→08:19)
[2016-09-14 05:58] LABS: BASOPHILS % (AUTO) 0.5 % (0.0-2.0); EOSINOPHILS % (AUTO) 1.2 % (1.0-6.0); HEMATOCRIT 34.2 % (36-46); HEMOGLOBIN 10.9 g/dL (12.0-16.0); LYMPHOCYTES # (AUTO) 0.7 K/uL (1.0-4.8); MEAN CORPUSCULAR HEMOGLOBIN 31.7 pg (26.0-34.0); MEAN CORPUSCULAR VOLUME 99 fL (80-100); MONOCYTES # (AUTO) 0.2 K/uL (0.1-1.0); MONOCYTES % (AUTO) 9.7 % (2.0-9.0); NEUTROPHILS # (AUTO) 1.3 K/uL (1.8-7.7); NEUTROPHILS % (AUTO) 57.6 % (40.0-70.0); PLATELET COUNT (AUTO) 71 K/uL (150-450); RED BLOOD CELL COUNT(AUTO) 3.45 MIL/uL (4.00-5.20); RED CELL DISTRIBUTION WIDTH 18.6 % (11.5-14.5); WHITE BLOOD COUNT (AUTO) 2.2 K/uL (4.5-11.0)
[2016-09-14 06:32] LABS: BILIRUBIN,TOTAL 9.4 mg/dL (0.1-1.0); CALCIUM, TOTAL 7.9 mg/dL (8.8-10.5); CREATININE 1.38 mg/dL (0.60-1.30); POTASSIUM 4.1 mmol/L (3.5-5.1); THYROID STIMULATING HORMONE 0.68 uIU/mL (0.36-3.74); TOTAL PROTEIN, SERUM 5.3 g/dL (6.4-8.2)
[2016-09-14] MEDS: LEVOTHYROXINE SODIUM 50 MCG TABLET PO SCH (06:47)
[2016-09-14] MEDS: PANTOPRAZOLE SODIUM 40 MG DR TABLET PO SCH (08:19)
[2016-09-14] MEDS: FOLIC ACID 1 MG TABLET PO SCH (08:19)
[2016-09-14] MEDS: SERTRALINE HCL 50 MG TABLET PO SCH (08:19)
[2016-09-14] MEDS: ASPIRIN 81 MG CHEWABLE TABLET PO SCH (08:19)
[2016-09-14] MEDS: SPIRONOLACTONE 25 MG TABLET PO SCH (08:19)
[2016-09-14] MEDS ORDERED: FUROSEMIDE 40 MG TABLET PO SCH (09:00)
[2016-09-14] MEDS ORDERED: AMIODARONE HCL 200 MG TABLET PO SCH (09:00)
[2016-09-14 09:03] LABS: RBC MORPHOLOGY COMMENT ABNORMAL RBC MORPH
[2016-09-14] MEDS ORDERED: SODIUM CHLORIDE 0.9% 250 ML IV ONE (09:55)
[2016-09-14 11:47] LABS: INR 1.6 (0.9-1.1); PROTHROMBIN TIME 16.4 SEC (9.4-11.6)
[2016-09-14] MEDS ORDERED: SODIUM CHLORIDE 0.45% 500 ML IV ONE (13:30)
[2016-09-14] MEDS ORDERED: GADOBUTROL 1 MMOL/ML 10 ML VIAL IVP ONE (16:40)
[2016-09-15 04:18] VITALS: BP 101/52
[2016-09-15] MEDS: LEVOTHYROXINE SODIUM 50 MCG TABLET PO SCH (06:48)
[2016-09-15 07:42] VITALS: BP 98/38
[2016-09-15 08:10] LABS: BASOPHILS % (AUTO) 0.3 % (0.0-2.0); EOSINOPHILS % (AUTO) 1.2 % (1.0-6.0); HEMATOCRIT 36.1 % (36-46); HEMOGLOBIN 11.4 g/dL (12.0-16.0); LYMPHOCYTES % (AUTO) 29.7 % (22.0-44.0); MEAN CORPUSCULAR HEMOGLOBIN 31.5 pg (26.0-34.0); MEAN CORPUSCULAR HGB CONC 31.7 G/dL (31.0-37.0); MEAN CORPUSCULAR VOLUME 99 fL (80-100); MONOCYTES # (AUTO) 0.3 K/uL (0.1-1.0); MONOCYTES % (AUTO) 9.3 % (2.0-9.0); NEUTROPHILS % (AUTO) 59.5 % (40.0-70.0); PLATELET COUNT (AUTO) 87 K/uL (150-450); RED BLOOD CELL COUNT(AUTO) 3.63 MIL/uL (4.00-5.20); RED CELL DISTRIBUTION WIDTH 18.8 % (11.5-14.5); WHITE BLOOD COUNT (AUTO) 3.4 K/uL (4.5-11.0)
[2016-09-15] MEDS: FOLIC ACID 1 MG TABLET PO SCH (08:14)
[2016-09-15] MEDS: SERTRALINE HCL 50 MG TABLET PO SCH (08:14)
[2016-09-15] MEDS: PANTOPRAZOLE SODIUM 40 MG DR TABLET PO SCH (08:14)
[2016-09-15 08:44] LABS: BILIRUBIN,TOTAL 9.6 mg/dL (0.1-1.0); CREATININE 1.39 mg/dL (0.60-1.30); POTASSIUM 4.7 mmol/L (3.5-5.1); TOTAL PROTEIN, SERUM 5.7 g/dL (6.4-8.2)
[2016-09-15 09:03] LABS: RBC MORPHOLOGY COMMENT ABNORMAL RBC MORPH
[2016-09-15 09:45] VITALS: BP 105/64
[2016-09-15 09:46] VITALS: BP 130/63
[2016-09-15] MEDS: SPIRONOLACTONE 25 MG TABLET PO SCH (09:52)
[2016-09-15] MEDS: ASPIRIN 81 MG CHEWABLE TABLET PO SCH (09:52)
[2016-09-15 10:26] LABS: HEPATITIS Bs ANTIGEN SCREEN P Negative (Negative); HEPATITIS C AB SCREEN >11.0 s/co ratio (0.0-0.9)
[2016-09-15 11:11] VITALS: BP 131/53
[2016-09-17 19:07] LABS: ANA,IFA (TITER & PATTERN) Negative
[2016-09-18 02:31] LABS: CARCINOEMBRYONIC AG 8.5 ng/mL (0.0-4.7)
[2016-09-18 12:09] LABS: F-ACTIN (SMOOTH MUSCLE) AB IGG 17 Units (0-19); MITOCHONDRIAL M2 AB IGG 3.8 Units (0.0-20.0)
== END 2016-09-15 15:10 | disposition home or self-care (01) | DRG 441 ==
LOC: EMS 15:34 → 5N 22:27 → 5S 22:27
PROVIDERS: ADMIT Hospitalist; ATTEND Hospitalist
DX: R17 Unspecified jaundice (principal); E43 Unspecified severe protein-calorie malnutrition; N17.9 Acute kidney failure, unspecified; I50.22 Chronic systolic (congestive) heart failure; D61.818 Other pancytopenia; I13.0 Hypertensive heart and chronic kidney disease with heart failure and stage 1 through stage 4 chronic kidney disease, or unspecified chronic kidney disease; R18.8 Other ascites; Z68.1 Body mass index [BMI] 19.9 or less, adult; K74.60 Unspecified cirrhosis of liver; J44.9 Chronic obstructive pulmonary disease, unspecified; D69.6 Thrombocytopenia, unspecified; I48.2 Chronic atrial fibrillation; E03.9 Hypothyroidism, unspecified; E11.22 Type 2 diabetes mellitus with diabetic chronic kidney disease; E78.5 Hyperlipidemia, unspecified; R00.1 Bradycardia, unspecified; M35.9 Systemic involvement of connective tissue, unspecified; F32.9 Major depressive disorder, single episode, unspecified; J45.909 Unspecified asthma, uncomplicated; I48.0 Paroxysmal atrial fibrillation; K21.9 Gastro-esophageal reflux disease without esophagitis; N18.3 Chronic kidney disease, stage 3 (moderate); Z79.899 Other long term (current) drug therapy; Z79.51 Long term (current) use of inhaled steroids; Z79.82 Long term (current) use of aspirin; Z99.81 Dependence on supplemental oxygen; Z90.49 Acquired absence of other specified parts of digestive tract; Z87.891 Personal history of nicotine dependence
CPT/HCPCS: 74183; 76705; 80074; 82105; 82378; 83516; 83540; 83550; 84443; 86038; 86301; 93005; 93306; 99285; A9585; J1644; J7050

== ENCOUNTER → 2016-09-13 | Outpatient (CLI) | payer MEDICARE, OTHER ==
[~2016-09-13] VITALS: Ht 142.2 cm; Wt 60.0 kg
[~2016-09-13] MED LIST changes: +CIPR-278 PO; +FERR-72 PO
[2016-09-13 14:21] VITALS: BP 108/47
== END | disposition home or self-care (01) ==
LOC: SRCNTR 14:14
PROVIDERS: ATTEND Internal Medicine Cardiovascular Disease
DX: I10 Essential (primary) hypertension (principal); J44.9 Chronic obstructive pulmonary disease, unspecified; I35.0 Nonrheumatic aortic (valve) stenosis; K76.89 Other specified diseases of liver; I48.91 Unspecified atrial fibrillation
CPT/HCPCS: G0463